=== PATIENT | female | born 1990 | race Caucasian/White ===

== ENCOUNTER 2021-06-02 12:25 | Emergency (ER) | payer OTHER ==
[2021-06-02 12:34] VITALS: BP 139/82; PULSE 78; RESP 18; TEMP 98
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
== END 2021-06-02 13:27 | disposition home or self-care (01) ==
LOC: EC 12:25 → SUPCPDRO 12:25 → EC 13:27
DX: S16.1XXA Strain of muscle, fascia and tendon at neck level, initial encounter (principal); E11.9 Type 2 diabetes mellitus without complications; Z79.4 Long term (current) use of insulin; V43.52XA Car driver injured in collision with other type car in traffic accident, initial encounter; Y92.410 Unspecified street and highway as the place of occurrence of the external cause
CPT/HCPCS: 72050; 99283

== ENCOUNTER 2022-08-14 11:31 | Emergency (ER) | payer OTHER ==
[2022-08-14 12:27] VITALS: TEMP 97.4
[2022-08-14] MEDS ORDERED: IPRATROPIUM-ALBUTEROL 3 ML NEB INHALATION STA (13:41)
--- NOTE | 2022-08-14 14:01 | XR ---
EXAMINATION TYPE: XR chest 2V DATE OF EXAM: 08/14/2022 COMPARISON: NONE HISTORY: Cough. TECHNIQUE: Frontal and lateral views of the chest are obtained. FINDINGS: There is no suspicious focal air space opacity, pleural effusion, or pneumothorax seen. T he cardiac silhouette size is within normal limits. The osseous structures are intact. IMPRESSION: No acute pulmonary process.
--- NOTE | 2022-08-14 14:24 | ED ---
URI HPI - General Chief Complaint: Upper Respiratory Infection Stated Complaint: possible pneumonia Time Seen by Provider: 08/14/22 13:14 Source: patient, RN notes reviewed Mode of arrival: ambulatory Limitations: no limitations - History of Present Illness Initial Comments: 32-year-old female presents emergency from chief complaint cough and cold-like s ymptoms. Patient states she's been sick for 2 weeks. Patient states she has productive cough, wheezing. Patient states she has history of diabetes no history of asthma or COPD she is a nonsmoker. Patient states she seen at urgent care and was started on steroids and antibiotics last week and finished up on . Patient states that she's not had much improvement. Denies any leg pain or leg swelling no shortness breath at rest. Patient states she's been taking ALLERGY meds with no relief also. - Related Data Home Medications Medication Instructions Recorded Confirmed Insulin Glargine [Lantus] 30 unit SQ HS 06/19/14 05/11/15 Insulin Glulisine [Apidra] 1 unit SQ DIRECTED 06/19/14 05/11/15 Desvenlafaxine Succinate [Pristiq 50 mg PO DAILY 04/25/15 05/11/15 ER] Previous Rx's Medication Instructions Recorded Albuterol Sulfate [Proair Hfa] 1 - 2 puff INHALATION Q4HR PRN 08/14/22 #8.5 gm Amoxic-Pot Clav 875-125Mg 1 tab PO Q12HR #20 tab 08/14/22 [Augmentin 875-125] Allergies Allergy/AdvReac Type Severity Reaction Status Date / Time No Known Allergies Allergy Verified 06/02/21 12:35 Review of Systems ROS Statement: Those systems with pertinent positive or pertinent negative responses have been documented in the HPI. ROS Other: All systems not noted in ROS Statement are negative. Past Medical History Past Medical History: Diabetes Mellitus Additional Past Medical History / Comment(s): miscarriage x 2 History of Any Multi-Drug Resistant Organisms: None Reported Past Surgical History: No Surgical Hx Reported Past Psychological History: Depression Smoking Status: Never smoker Past Alcohol Use History: Occasional Past Drug Use History: None Reported General Exam Limitations: no limitations General appearance: alert, in no apparent distress Head exam: Present: atraumatic, normocephalic, normal inspection Eye exam: Present: normal appearance, PERRL, EOMI. Absent: scleral icterus, conjunctival injection, periorbital swelling ENT exam: Present: normal exam, normal oropharynx, mucous membranes moist Neck exam: Present: normal inspection, full ROM. Absent: tenderness, meningismus, lymphadenopathy Respiratory exam: Present: wheezes, rhonchi. Absent: normal lung sounds bilaterally, respiratory distress, rales, stridor Cardiovascular Exam: Present: normal rhythm, tachycardia, normal heart sounds. Absent: systolic murmur, diastolic murmur, rubs, gallop, clicks GI/Abdominal exam: Present: soft, normal bowel sounds. Absent: distended, tenderness, guarding, rebound, rigid Course Vital Signs 08/14/22 08/14/22 12:23 14:34 Temperature 97.4 F L Pulse Rate 114 H 114 H Respiratory 20 Rate Blood Pressure 130/74 O2 Sat by Pulse 98 Oximetry Medical Decision Making - Medical Decision Making 32-year-old female presents emergency Department chief complaint of cough and cold-like symptoms's. Patient's x-ray does not show any acute abnormality patient has been sick for 2 weeks. Patient does have diffuse wheezing was given DuoNeb treatment did have some improvement. Patient discharged on pro-air, Augmentin return parameters discussed. Disposition Clinical Impression: Acute upper respiratory infection, Bronchitis Disposition: HOME SELF-CARE Condition: Stable Instructions (If sedation given, give patient instructions): Upper Respiratory Infection (ED) Additional Instructions: Please return to the Emergency Department if symptoms worsen or any other concerns. Prescriptions: Amoxic-Pot Clav 875-125Mg [Augmentin 875-125] 1 tab PO Q12HR #20 tab Albuterol Sulfate [Proair Hfa] 1 - 2 puff INHALATION Q4HR PRN #8.5 gm PRN Reason: difficulty in breathing Is patient prescribed a controlled substance at d/c from ED?: No Referrals: Brenda Hodge MD [Primary Care Provider] - 1-2 days Time of Disposition: 14:48
[2022-08-14 15:05] VITALS: BP 125/81; PULSE 111; RESP 17
== END 2022-08-14 15:05 | disposition home or self-care (01) ==
LOC: EC 11:31
DX: J06.9 Acute upper respiratory infection, unspecified (principal); J40 Bronchitis, not specified as acute or chronic; E11.9 Type 2 diabetes mellitus without complications; Z79.4 Long term (current) use of insulin
CPT/HCPCS: 71046; 99284

== ENCOUNTER → 2022-08-24 | Outpatient (CLI) | payer OTHER ==
--- NOTE | 2022-08-24 09:29 | MM ---
Reason for Exam: Clinical finding. Last mammogram was performed 3 year(s) and 10 month(s) ago. Indicated Problems: Lump or thickening of the right side for 8 Year(s). Patient History: Menarche at age 12. First Full-Term at age 21. Premenopausal. Patient has history of breast feeding. Prior Study Comparison: 10/23/2018 Bilateral MG diagnostic mammo w CAD CINDY - 2, [facility]. 10/23/2018 Bilateral MG 3D diag mammo w/cad CINDY - 2, [facility]. Tissue Density: The breast tissue is heterogeneously dense. This may lower the sensitivity of mammography. Findings: Analyzed By CAD. Palpable marker upper outer quadrant right breast. There is underlying dense tissue and nodularity measuring up to 3.1 cm. In addition, there appears to be an area of spiculation and distortion approximately 2:00 left breast middle to posterior depth. Bilateral breast ultrasound recommended. Overall Assessment: Incomplete: need additional imaging evaluation, BI-RAD 0 Management: Diagnostic Breast Ultrasound of both breasts. Particular attention to the upper outer quadrant palpable site on the right in the area of distortion/spiculation upper outer quadrant left breast. Electronically signed and approved by: Dinesh Gonzalez M.D. Radiologist
--- NOTE | 2022-08-24 12:31 | USB ---
Reason for Exam: Clinical finding. Patient History: Menarche at age 12. First Full-Term at age 21. Premenopausal. Patient has history of breast feeding. Prior Study Comparison: 10/23/2018 Bilateral MG diagnostic mammo w CAD CINDY - 2, [facility]. 10/23/2018 Bilateral MG 3D diag mammo w/cad CINDY - 2, [facility]. Findings: The whole breast of both breasts, the area of palpable concern of the right breast, the axilla of both breasts and the retroareolar of both breasts were scanned. Bilateral breast ultrasound is performed including scanning of the subareolar region and axilla. LEFT: -At the 2:00 position, 7 cm from the nipple, there is a 1.3 x 1.0 x 0.9 cm irregular hypoechoic lesion, likely mammographic correlate, suspicious for which tissue sampling is recommended. -At the 10:00 position, 9 cm from the nipple, there is a 9 x 9 x 7 mm irregular hypoechoic lesion, not clearly appreciated by mammogram, suspicious, for which tissue sampling is recommended. -At the 2:00 position, there is a benign 1.4 cm cyst. -At the 3:00 position, 10 cm from nipple, there is a 7 mm oval circumscribed hypoechoic lesion, likely a cyst with internal artifact due to deep positioning versus internal debris. -At the axilla, there is a benign-appearing 2.0 x 0.9 cm axillary node with uniform, thin 2 mm cortex. RIGHT: -At the 9:00 position, 9 cm from the nipple, there is a 2.8 x 2.4 x 1.9 cm circumscribed oval hypoechoic mass with posterior true transmission. This is a solid mass for which tissue sampling is recommended. A fibroadenoma is suspected. -At the 11:00 position, 18 cm from the nipple, there is a large area of dense tissue but with a 7 x 6 x 4 mm oval lesion within, possible cyst with debris versus a complex cyst. This corresponds to the patient's palpable site and tissue sampling is recommended. -No other solid or cystic lesion or axillary lymphadenopathy. Overall Assessment: Highly suggestive of malignancy, BI-RAD 5 Management: Ultrasound Core Biopsy of both breasts. 1. Two site biopsy on the left for very suspicious areas (2:00 and 10:00). 2. Two site biopsy on the right for low suspicion areas, likely 9:00 fibroadenoma and 11:00 possible cyst cluster at the palpable site. Results were given to the patient verbally at the time of exam. Electronically signed and approved by: Dinesh Gonzalez M.D. Radiologist
== END | disposition home or self-care (01) ==
LOC: RADMAMWWP 08:15
PROVIDERS: ATTEND Surgery
DX: N63.10 Unspecified lump in the right breast, unspecified quadrant (principal); N63.20 Unspecified lump in the left breast, unspecified quadrant
CPT/HCPCS: 77066

== ENCOUNTER 2022-09-05 10:33 | Emergency (ER) | payer OTHER ==
[2022-09-05 10:45] VITALS: TEMP 98.5
--- NOTE | 2022-09-05 11:16 | ED ---
URI HPI - General Chief Complaint: Upper Respiratory Infection Stated Complaint: revisit - URI, cough Time Seen by Provider: 09/05/22 10:52 Source: patient, RN notes reviewed Mode of arrival: ambulatory Limitations: no limitations - History of Present Illness Initial Comments: 32-year-old female presents emergency Department chief complaint of cough and cold like symptoms. Patient states she's been sick for several weeks states the cough improved some with the antibiotic states is still persisting. Patient states it's productive cough, harsh cough. She does not have a history of asthma or COPD. Patient is known diabetic. Patient denies any reported fever as nausea and diarrhea constipation. - Related Data Home Medications Medication Instructions Recorded Confirmed Atomoxetine HCl [Strattera] 60 mg PO DAILY 08/25/22 09/05/22 Insulin Aspart (For Pump) [NovoLOG 0.01 unit SQ-PUMP CONTINUOUS 08/25/22 (For Pump)] Sertraline [Zoloft] 100 mg PO DAILY 08/25/22 09/05/22 Previous Rx's Medication Instructions Recorded Clarithromycin [Biaxin] 500 mg PO Q12HR #20 tablet 09/05/22 Allergies Allergy/AdvReac Type Severity Reaction Status Date / Time No Known Allergies Allergy Verified 09/05/22 11:29 Review of Systems ROS Statement: Those systems with pertinent positive or pertinent negative responses have been documented in the HPI. ROS Other: All systems not noted in ROS Statement are negative. Past Medical History Past Medical History: Diabetes Mellitus Additional Past Medical History / Comment(s): miscarriage x 2. Type 1DM History of Any Multi-Drug Resistant Organisms: None Reported Past Surgical History: No Surgical Hx Reported Past Anesthesia/Blood Transfusion Reactions: No Reported Reaction Past Psychological History: ADD/ADHD, Depression Smoking Status: Former smoker Past Alcohol Use History: Occasional Past Drug Use History: Marijuana General Exam Limitations: no limitations General appearance: alert, in no apparent distress Head exam: Present: atraumatic, normocephalic, normal inspection Eye exam: Present: normal appearance, PERRL, EOMI. Absent: scleral icterus, conjunctival injection, periorbital swelling ENT exam: Present: normal exam, normal oropharynx, mucous membranes moist Neck exam: Present: normal inspection, full ROM. Absent: tenderness, meningismus, lymphadenopathy Respiratory exam: Present: normal lung sounds bilaterally. Absent: respiratory distress, wheezes, rales, rhonchi, stridor Cardiovascular Exam: Present: regular rate, normal rhythm, normal heart sounds. Absent: systolic murmur, diastolic murmur, rubs, gallop, clicks GI/Abdominal exam: Present: soft, normal bowel sounds. Absent: distended, tenderness, guarding, rebound, rigid Course Vital Signs 09/05/22 10:42 Temperature 98.5 F Pulse Rate 88 Respiratory 20 Rate Blood Pressure 129/74 O2 Sat by Pulse 98 Oximetry Medical Decision Making - Medical Decision Making X-rays unchanged as interpreted by me and radiology, negative RSV, influenza and COVID-19. Patient follow-up with PCP return parameters discussed. - Lab Data Lab Results 09/05/22 Range/Units 11:09 Influenza Type A (PCR) Not Detected (Not Detectd) Influenza Type B (PCR) Not Detected (Not Detectd) RSV (PCR) Not Detected (Not Detectd) SARS-CoV-2 (PCR) Not Detected (Not Detectd) Disposition Clinical Impression: Tracheobronchitis Disposition: HOME SELF-CARE Condition: Stable Instructions (If sedation given, give patient instructions): Upper Respiratory Infection (ED) Additional Instructions: Please return to the Emergency Department if symptoms worsen or any other concerns. Prescriptions: Clarithromycin [Biaxin] 500 mg PO Q12HR #20 tablet Is patient prescribed a controlled substance at d/c from ED?: No Referrals: None,Stated [Primary Care Provider] - 1-2 days Time of Disposition: :
--- NOTE | 2022-09-05 11:25 | XR ---
EXAMINATION TYPE: XR chest 2V DATE OF EXAM: 09/05/2022 11:20 AM COMPARISON: Chest radiographs from 08/14/2022. TECHNIQUE: XR chest 2V Frontal and lateral views of the chest. CLINICAL INDICATION:Female, 32 years old with history of cough; FINDINGS: Lungs/Pleura: There is no evidence of pleural effusion, focal consolidation, or pneumothorax. Pulmonary vascularity: Unremarkable. Heart/mediastinum: Cardiomediastinal silhouette is unremarkable. Musculoskeletal: No acute osseous pathology. IMPRESSION: No acute cardiopulmonary disease/process. No significant change from prior examination.
[2022-09-05 12:57] VITALS: BP 126/78; PULSE 80; RESP 18
== END 2022-09-05 12:57 | disposition home or self-care (01) ==
LOC: EC 10:33
DX: J40 Bronchitis, not specified as acute or chronic (principal); E11.9 Type 2 diabetes mellitus without complications; F90.9 Attention-deficit hyperactivity disorder, unspecified type; F32.A Depression, unspecified; F12.90 Cannabis use, unspecified, uncomplicated; Z87.891 Personal history of nicotine dependence; Z79.4 Long term (current) use of insulin; Z20.822 Contact with and (suspected) exposure to COVID-19
CPT/HCPCS: 71046; 87636; 99283

== ENCOUNTER → 2022-09-06 | Day surgery (SDC) | payer OTHER ==
--- NOTE | 2022-09-18 12:04 | MM ---
Reason for Exam: Post Procedure Mammogram. Last screening mammogram was performed less than 1 month ago. Patient History: Menarche at age 12. First Full-Term at age 21. Premenopausal. Patient has history of breast feeding. Prior Study Comparison: 10/23/2018 Bilateral MG diagnostic mammo w CAD CINDY - 2, [facility]. 10/23/2018 Bilateral MG 3D diag mammo w/cad CINDY - 2, [facility]. 08/24/2022 Bilateral MG diagnostic mammo w CAD CINDY, [facility]. Tissue Density: Left: The breast tissue is heterogeneously dense. This may lower the sensitivity of mammography. Pathology Description: The procedure of ultrasound guided core biopsy was explained to the patient. Benefits, alternatives, and risks were discussed. An informed consent was then obtained. A timeout was performed. Discussion was around for potential biopsy sites. During preliminary evaluation the second site within the left breast appear to be 3 adjacent simple cysts. Biopsy of this was not going to be performed. The remaining 3 areas were discussed. The patient was placed in supine positioning for imaging and for the procedure. The overlying skin was prepped and draped in usual sterile fashion. Lidocaine was used as anesthetic into the skin and subcutaneous tissue up to area of concern in the left breast. A small skin davi was made with surgical scalpel. Under ultrasound guidance, a 12-gauge vacuum assisted biopsy gun device was used to obtain 4 core samples. A biopsy clip was left in lesion. Hydromark butterfly core marker was placed. Patient had an episode of vasovagal reaction during the procedure. Patient denied pain at This treated with cold washcloth, which spontaneously resolved. The procedure was then continued. Patient was prepped in the standard on the right side. Skin davi was placed and the needle was advanced into the breast. A second episode of vasovagal reaction occurred. Patient denied pain. The needle was withdrawn and the Patient was provided [place] diffuse and cold washcloth. Symptoms resolved. Given the previous difficulty the right breast procedure was terminated at this time. The patient will be rescheduled for completion of the 2 biopsies on the right. The patient was kept in the radiology department for short stay after the procedure and then discharged home in stable condition. Postprocedure mammogram: The patient was transferred to mammography for physician ordered post procedure mammogram for clip placement verification. Impression: Successful ultrasound guided core biopsy of area of concern in the left breast, full pathology results to follow. Right breast biopsy, 2 sites, was not performed due to patient condition during the procedure. This will be rescheduled. Recommendations: 1. Recommendations are pending pathology results. 2. Patient will be rescheduled for completion of the 2 right-sided biopsy locations. Pathology Results: Result: Benign, Lipoma of the breast. LEFT BREAST, TWO O'CLOCK, ULTRASOUND GUIDED NEEDLE CORE BIOPSY: Mature adipose tissue consistent with lipoma. Breast elements are not identified . Overall Assessment: Benign Assessment: MG diagnostic mammo LT wo CAD. - Left: Benign, BI-RAD 2. Management: Diagnostic Breast Ultrasound of the left breast in 6 months. Electronically signed and approved by: Ricco Blackmon D.O. Radiologis
== END ==
LOC: RADUSWWP 10:13
PROVIDERS: ATTEND Surgery
DX: R92.8 Other abnormal and inconclusive findings on diagnostic imaging of breast (principal)
CPT/HCPCS: 88305; 77065; 19083; A4648

== ENCOUNTER → 2022-09-26 | Day surgery (SDC) | payer OTHER ==
--- NOTE | 2022-10-02 09:27 | MM ---
Reason for Exam: Post Procedure Mammogram. Last screening mammogram was performed 1 month(s) ago. Patient History: Menarche at age 12. First Full-Term at age 21. Premenopausal. Patient has history of breast feeding. 09/06/2022, US biopsy breast VAD LT on the Left side. Prior Study Comparison: 10/23/2018 Bilateral MG 3D diag mammo w/cad CINDY - 2, [facility]. 08/24/2022 Bilateral MG diagnostic mammo w CAD CINDY, [facility]. 09/06/2022 Left MG diagnostic mammo LT wo CAD., [facility]. Tissue Density: Right: The breast tissue is heterogeneously dense. This may lower the sensitivity of mammography. Pathology Description: Location: 11 o'clock. Marker Left Behind. Cores: 5 Gauge: 13 First the left breast was evaluated. Extensive shadowing breast tissue was present throughout. The biopsy clip was identified at the 2:00 position. Shadowing tissue just adjacent appeared exactly similar to other tissue elsewhere within the breasts. We are to deferring repeat biopsy of the left breast at this time and recommending that the patient proceeds to tomographic guided 3-D breast biopsy. Attention was turned to the right breast. The dominant 2.7 cm circumscribed solid mass at 9:00, possible fibroadenoma is identified. The round hypoechoic 6 mm area 11:00 is also identified. Both are targeted for biopsy in turn. The procedure of ultrasound guided core biopsy was explained to the patient. Benefits, alternatives, and risks were discussed. An informed consent was then obtained. The patient was placed in supine positioning for imaging and for the procedure. The overlying skin was prepped and draped in usual sterile fashion. Lidocaine was used as anesthetic into the skin and subcutaneous tissue up to area of concern in the right breast. Site A, 9:00, dominant mass, suspected fibroadenoma: Under ultrasound guidance, a 13-gauge vacuum-assisted mammotome biopsy gun was used to obtain 5 core samples. Following this, a wing clip was left in lesion. Site B, 11:00, small hypoechoic area, overall low suspicion: Under ultrasound guidance, a 13-gauge vacuum-assisted mammotome biopsy gun was used to obtain 6 core samples. Following this, a Hydromark coil clip was left in lesion. The patient tolerated the procedure well without any immediate complication. The patient was kept in the radiology department for short stay after the procedure and then discharged home in stable condition. Postprocedure mammogram: The patient was transferred to mammography for physician ordered post procedure mammogram for clip placement verification. Post procedure mammogram shows wing clip at the site of mammographic mass laterally. Coil clip is present laterally at a more posterior depth. Impression: 1. Successful, uncomplicated ultrasound guided two site biopsy of the right breast (suspected fibroadenoma at 9:00 and suspected benign lesion at 11:00), full pathology results to follow. 2. Canceled repeat ultrasound-guided left breast biopsy (after discordant results). The breast tissue was shadowing throughout and no discrete biopsy target is apparent. We recommend that the patient proceeds to 3-D/tomographic guided left breast biopsy for further assessment of the area of distortion. Pathology Results: Result: Benign, Fibroadenoma. A. RIGHT BREAST, NINE O'CLOCK, CORE BIOPSY: Compatible with benign fibroadenoma. B. RIGHT BREAST, ELEVEN O'CLOCK, CORE BIOPSY: Benign fibroadenoma with myxoid change. Pathology Description: Location: 9 o'clock. Marker Left Behind. Cores: 6 Gauge: 13 Overall Assessment: Benign Assessment: MG diagnostic mammo RT wo CAD - Right: Benign, BI-RAD 2. Management: Diagnostic Breast Ultrasound of the right breast in 6 months. Electronically signed and approved by: Dinesh Gonzalez M.D. Radiologist
== END ==
LOC: RADUSWWP 12:45
PROVIDERS: ATTEND Surgery
DX: D24.1 Benign neoplasm of right breast (principal)
CPT/HCPCS: 88305; 77065; 19083; 19084; A4648

== ENCOUNTER → 2022-09-29 | Outpatient (CLI) | payer OTHER ==
[2022-09-29 14:14] VITALS: BP 119/80; PULSE 105; RESP 16; TEMP 98.6
--- NOTE | 2022-09-29 15:00 | P.GSHP ---
History of Present Illness H&P Date: 09/29/22 Chief Complaint: abnormal bilateral mammogram and ultrasound Alyssa is a 32 year old white female seen in consultation for Dr. Hodge regarding an abnormal bilateral ultrasound. She had a bilateral mammogram on 08-24-22 followed by bilateral ultrasound. She had two area biopsied in the right breast which were fibroadenoma, and one in the left breast which was a lipoma but ? discordant. The films were reviewed with Dr. Hendrix. He recommended bilateral MRI and 3-D biopsy of an area of concern in the left breast. This started secondary to the fact the patient wanted to have a breast reduction. She did not feel anything new in her breast. The reduction was for back pain, shoulder notching, and macromastia. She wears 38H bra. Caffiene: 1-2/cups/day nicotine:none chocolate: occasional BCP: 10 years ago; used for about 4 years Family History: none Hormonal History; menarche: 12 m3, breast fed: yes. age at : 21 periods regular LMP: one week ago Surgical HIstory: none Medical History: type 1 diabetic depression ADHD Social History; nicotine: none alcohol: occasional drugs: marijuana daily - Constitutional Constitutional: Denies chills, Denies fever - EENT Eyes: denies blurred vision, denies pain Ears: deny: decreased hearing, tinnitus Ears, nose, mouth and throat: Reports headache, Denies sore throat - Breasts Breasts: bilateral: as per HPI - Cardiovascular Cardiovascular: Denies chest pain, Denies shortness of breath - Respiratory Respiratory: Denies cough, Denies 7 - Gastrointestinal Gastrointestinal: Denies abdominal pain, Denies diarrhea, Denies nausea, Denies vomiting - Genitourinary (Female) Genitourinary: Denies dysuria, Denies hematuria - Menstruation Menstruation: Reports period normal - Musculoskeletal Musculoskeletal: Denies myalgias - Integumentary Integumentary: Denies pruritus, Denies rash - Neurological Neurological: Denies numbness, Denies weakness - Psychiatric Psychiatric: Reports depression - Endocrine Endocrine: Reports as per HPI - Hematologic/Lymphatic Comment: none - Allergic/Immunologic Allergic/Immunologic: Reports seasonal allergies Past Medical History Past Medical History: Diabetes Mellitus Additional Past Medical History / Comment(s): miscarriage x 2. Type 1DM History of Any Multi-Drug Resistant Organisms: None Reported Past Surgical History: No Surgical Hx Reported Past Anesthesia/Blood Transfusion Reactions: No Reported Reaction Past Psychological History: ADD/ADHD, Depression Smoking Status: Former smoker Past Alcohol Use History: Occasional Additional Past Alcohol Use History / Comment(s): quit smoking 2018 Past Drug Use History: Marijuana Medications and Allergies Home Medications Medication Instructions Recorded Confirmed Type Atomoxetine HCl [Strattera] 60 mg PO DAILY 08/25/22 09/29/22 History Insulin Aspart (For Pump) [NovoLOG 0.01 unit SQ-PUMP CONTINUOUS 08/25/22 09/29/22 History (For Pump)] Sertraline [Zoloft] 100 mg PO DAILY 08/25/22 09/29/22 History Clarithromycin [Biaxin] 500 mg PO Q12HR #20 tablet 09/05/22 09/29/22 Rx Allergies Allergy/AdvReac Type Severity Reaction Status Date / Time No Known Allergies Allergy Verified 09/29/22 14:10 Surgical - Exam Vital Signs Temp Pulse Resp BP Pulse Ox 98.6 F 105 H 16 119/80 100 09/29/22 14:11 09/29/22 14:11 09/29/22 14:11 09/29/22 14:11 09/29/22 14:11 - General no distress - Eyes normal ocular movement - ENT no hearing loss - Neck trachea midline - Respiratory normal respiratory effort - Cardiovascular Rhythm: regular Heart Sounds: normal: S1, S2 - Abdomen Abdomen: soft, non tender, no guarding, no rigid, no rebound - Integumentary normal turgor - Neurologic no disoriented, no combative - Musculoskeletal normal gait, normal posture - Psychiatric oriented to time, oriented to person, oriented to place, speech is normal, memory intact Breast Exam: BRA: 38H Inspection: bilateral grade 3 ptosis; right breast larger than left breast; macromastia palpation: right breast: fibrocystic changes, no dominate masses or nodules of concern; biopsy site clean and dry right axilla: no adenopathy of concern left breast: fibrocystic changes, no dominate masses or nodules of concern; biopsy site clean and dry left axilla: no adenopathy of concern Results mammogram and ultrasound reviewed in detail with Dr. Gonzalez Assessment and Plan Assessment: Impression: diabetes depression ADHD right breast fibroadenoma 2 left breast highly suspecious mammogram symptomatic macromastia Plan: bilatearl MRI left breast 3D stero biopsy follow up after above CC: DR. Hodge
== END ==
LOC: WWCWWP 14:01
PROVIDERS: ATTEND Surgery
DX: N60.21 Fibroadenosis of right breast (principal); E11.9 Type 2 diabetes mellitus without complications; F32.A Depression, unspecified; F90.9 Attention-deficit hyperactivity disorder, unspecified type; N62 Hypertrophy of breast; Z79.4 Long term (current) use of insulin
CPT/HCPCS: 77065

== ENCOUNTER 2022-12-16 20:28 | Emergency (ER) | payer OTHER ==
[2022-12-16 20:32] VITALS: TEMP 99.1
[2022-12-16] MEDS ORDERED: SODIUM CHLORIDE 0.9% 500 ML 500 ML IV STA (20:42)
--- NOTE | 2022-12-16 20:47 | ED ---
General Adult HPI - General Chief complaint: Upper Respiratory Infection Stated complaint: sob Time Seen by Provider: 12/16/22 20:35 Source: patient, RN notes reviewed, old records reviewed Mode of arrival: ambulatory Limitations: no limitations - History of Present Illness Initial comments: This is a nontoxic-appearing 32-year-old female presents to the emergency room with complaints of shortness of breath and cough today. She states she has had increased production and mucus. Denies any fevers. No nausea vomiting diarrhea or abdominal pain. States that she has been having a thick mucous cough since last June, on and off. The shortness of breath today concerned her. Does have history of diabetes, ADHD and depression. -: days(s) (1) Severity scale (1-10): 0 Associated Symptoms: cough, shortness of breath - Related Data Home Medications Medication Instructions Recorded Confirmed Atomoxetine HCl [Strattera] 60 mg PO DAILY 08/25/22 09/29/22 Insulin Aspart (For Pump) [NovoLOG 0.01 unit SQ-PUMP CONTINUOUS 08/25/22 09/29/22 (For Pump)] Sertraline [Zoloft] 100 mg PO DAILY 08/25/22 09/29/22 Previous Rx's Medication Instructions Recorded Clarithromycin [Biaxin] 500 mg PO Q12HR #20 tablet 09/05/22 Allergies Allergy/AdvReac Type Severity Reaction Status Date / Time No Known Allergies Allergy Verified 09/29/22 14:10 Review of Systems ROS Statement: Those systems with pertinent positive or pertinent negative responses have been documented in the HPI. ROS Other: All systems not noted in ROS Statement are negative. Past Medical History Past Medical History: Diabetes Mellitus Additional Past Medical History / Comment(s): miscarriage x 2. Type 1DM History of Any Multi-Drug Resistant Organisms: None Reported Past Surgical History: No Surgical Hx Reported Past Anesthesia/Blood Transfusion Reactions: No Reported Reaction Past Psychological History: ADD/ADHD, Depression Smoking Status: Former smoker Past Alcohol Use History: Occasional Past Drug Use History: Marijuana General Exam Limitations: no limitations General appearance: alert, in no apparent distress Head exam: Present: atraumatic Eye exam: Present: normal appearance. Absent: periorbital swelling, periorbital tenderness ENT exam: Present: mucous membranes moist Neck exam: Present: full ROM. Absent: tenderness, meningismus Respiratory exam: Present: normal lung sounds bilaterally. Absent: respiratory distress, accessory muscle use Cardiovascular Exam: Present: tachycardia GI/Abdominal exam: Present: soft. Absent: distended, tenderness, guarding, rebound, rigid Extremities exam: Present: full ROM, normal capillary refill. Absent: tenderness, pedal edema, joint swelling, calf tenderness Back exam: Absent: tenderness Neurological exam: Present: alert, oriented X3, CN II-XII intact Psychiatric exam: Present: normal affect, normal mood Skin exam: Present: warm, dry, intact, normal color. Absent: cyanosis, diaphoretic, petechiae, pallor Course Vital Signs 12/16/22 12/16/22 12/16/22 20:29 21:31 22:19 Temperature 99.1 F Pulse Rate 103 H 100 Respiratory 20 18 18 Rate Blood Pressure 157/73 156/82 O2 Sat by Pulse 93 L 97 Oximetry EKG Findings - EKG Results: EKG: sinus rhythm (Sinus rhythm with a ventricular rate of 92, AL interval 0.140, QRS 0.87, QTC 0.378, normal axis) Medical Decision Making - Medical Decision Making Patient resting comfortably on the cart with oxygen saturation 98% on room air with a heart rate of 97. She has no shortness of breath. No chest pain. Labs show no evidence of leukocytosis. D-dimer is negative. Electrolytes are unremarkable. Troponin negative at 0.012 EKG shows sinus rhythm with ventricular rate 92, AL interval 0.140, QRS 0.87, QTC 378, normal axis, no old EKG to compare Chest x-ray interpreted by me shows no focal consolidation. Radiologist i nterpretation no acute cardiopulmonary disease process. Case discussed with Dr. Campos. She was offered viral testing and declined. States she will follow up with her Dr. Garcia next week and return with any new or concerning symptoms. Was pt. sent in by a medical professional or institution (, PA, [employer] PLANS STAFF OFFICER, urgent care, hospital, or residential...) When possible be specific @ -No Did you speak to anyone other than the patient for history (EMS, parent, family, police, friend...)? What history was obtained from this source @ -No Did you review nursing and triage notes (agree or disagree)? Why? @ -I reviewed and agree with nursing and triage notes Were old charts reviewed (outside hosp., previous admission, EMS record, old EKG, old radiological studies, urgent care reports/EKG's, residential records)? Report findings @ -No old charts were reviewed Differential Diagnosis (chest pain, altered mental status, abdominal pain women, abdominal pain men, vaginal bleeding, weakness, fever, dyspnea, syncope, headache, dizziness, GI bleed, back pain, seizure, CVA, palpatations, mental health, musculoskeletal)? @ -Pneumonia, viral illness, PE, HI, this is not an old sebaceous EKG interpreted by me (3pts min.). @ -As above X-rays interpreted by me (1pt min.). @ -Yes as above CT interpreted by me (1pt min.). @ -None done U/S interpreted by me (1pt. min.). @ -None done What testing was considered but not performed or refused? (CT, X-rays, U/S, labs)? Why? @ -Viral swabs were offered and patient refused What meds were considered but not given or refused? Why? @ -None Did you discuss the management of the patient with other professionals (jillian maravilla i.eNo Singer, PA, [employer] STAFF OFFICER, lab, RT, psych nurse, social welfare administrator, roll tube setter, teacher, adult parole officer, watch case polisher)? Give summary @ -No Was smoking cessation discussed for >3mins.? @ -No Was critical care preformed (if so, how long)? @ -No Were there social determinants of health that impacted care today? How? (Homelessness, low income, unemployed, alcoholism, drug addiction, transportation, low edu. Level, literacy, decrease access to med. care, half-way, rehab)? @ -No Was there de-escalation of care discussed even if they declined (Discuss DNR or withdrawal of care, Hospice)? DNR status @ -No What co-morbidities impacted this encounter? (DM, HTN, Smoking, COPD, CAD, Cancer, CVA, ARF, Chemo, Hep., AIDS, mental health diagnosis, sleep apnea, morbid obesity)? @ -Diabetes Was patient admitted / discharged? Hospital course, mention meds given and route, prescriptions, significant lab abnormalities, going to OR and other pertinent info. @ -discharged Undiagnosed new problem with uncertain prognosis? @ -No Drug Therapy requiring intensive monitoring for toxicity (Heparin, Nitro, Insulin, Cardizem)? @ -No Were any procedures done? @ -No Diagnosis/symptom? @ -URI Acute, or Chronic, or Acute on Chronic? @ -Acute Uncomplicated (without systemic symptoms) or Complicated (systemic symptoms)? @ -Uncomplicated Side effects of treatment? @ -No Exacerbation, Progression, or Severe Exacerbation? @ -No Poses a threat to life or bodily function? How? (Chest pain, USA, HI, pneumonia, PE, COPD, DKA, ARF, appy, cholecystitis, CVA, Diverticulitis, Homicidal, Suicidal, threat to staff... and all critical care pts) @ -No - Lab Data Result diagrams: 12/16/22 21:00 12/16/22 21:00 Lab Results 12/16/22 12/16/22 12/16/22 Range/Units 21:00 21:00 21:00 WBC 12.7 H (3.8-10.6) k/uL RBC 4.93 (3.80-5.40) m/uL Hgb 14.3 (11.4-16.0) gm/dL Hct 42.5 (34.0-46.0) % MCV 86.2 (80.0-100.0) fL MCH 28.9 (25.0-35.0) pg MCHC 33.6 (31.0-37.0) g/dL RDW 13.1 (11.5-15.5) % Plt Count 352 (150-450) k/uL MPV 8.7 Neutrophils % 67 % Lymphocytes % 20 % Monocytes % 6 % Eosinophils % 4 % Basophils % 1 % Neutrophils # 8.5 H (1.3-7.7) k/uL Lymphocytes # 2.6 (1.0-4.8) k/uL Monocytes # 0.7 (0-1.0) k/uL Eosinophils # 0.5 (0-0.7) k/uL Basophils # 0.1 (0-0.2) k/uL D-Dimer 0.56 (<0.60) mg/L FEU Sodium 137 (137-145) mmol/L Potassium 4.2 (3.5-5.1) mmol/L Chloride 102 (98-107) mmol/L Carbon Dioxide 23 (22-30) mmol/L Anion Gap 12 mmol/L BUN 7 (7-17) mg/dL Creatinine 0.37 L (0.52-1.04) mg/dL Est GFR (CKD-EPI)AfAm >90 (>60 ml/min/1.73 sqM) Est GFR (CKD-EPI)NonAf >90 (>60 ml/min/1.73 sqM) Glucose 173 H (74-99) mg/dL Calcium 9.4 (8.4-10.2) mg/dL Magnesium 1.8 (1.6-2.3) mg/dL Total Bilirubin 0.5 (0.2-1.3) mg/dL AST 24 (14-36) U/L ALT 26 (4-34) U/L Alkaline Phosphatase 73 (38-126) U/L Troponin I (0.000-0.034) ng/mL Total Protein 7.7 (6.3-8.2) g/dL Albumin 4.3 (3.5-5.0) g/dL 12/16/22 Range/Units 21:00 WBC (3.8-10.6) k/uL RBC (3.80-5.40) m/uL Hgb (11.4-16.0) gm/dL Hct (34.0-46.0) % MCV (80.0-100.0) fL MCH (25.0-35.0) pg MCHC (31.0-37.0) g/dL RDW (11.5-15.5) % Plt Count (150-450) k/uL MPV Neutrophils % % Lymphocytes % % Monocytes % % Eosinophils % % Basophils % % Neutrophils # (1.3-7.7) k/uL Lymphocytes # (1.0-4.8) k/uL Monocytes # (0-1.0) k/uL Eosinophils # (0-0.7) k/uL Basophils # (0-0.2) k/uL D-Dimer (<0.60) mg/L FEU Sodium (137-145) mmol/L Potassium (3.5-5.1) mmol/L Chloride (98-107) mmol/L Carbon Dioxide (22-30) mmol/L Anion Gap mmol/L BUN (7-17) mg/dL Creatinine (0.52-1.04) mg/dL Est GFR (CKD-EPI)AfAm (>60 ml/min/1.73 sqM) Est GFR (CKD-EPI)NonAf (>60 ml/min/1.73 sqM) Glucose (74-99) mg/dL Calcium (8.4-10.2) mg/dL Magnesium (1.6-2.3) mg/dL Total Bilirubin (0.2-1.3) mg/dL AST (14-36) U/L ALT (4-34) U/L Alkaline Phosphatase (38-126) U/L Troponin I <0.012 (0.000-0.034) ng/mL Total Protein (6.3-8.2) g/dL Albumin (3.5-5.0) g/dL Disposition Clinical Impression: Cough Disposition: HOME SELF-CARE Condition: Good Instructions (If sedation given, give patient instructions): Chronic Cough (ED), Upper Respiratory Infection (ED) Additional Instructions: Increase your fluid intake. Follow-up with the primary care doctor next week. Return to the emergency room with any new or concerning symptoms. Is patient prescribed a controlled substance at d/c from ED?: No Referrals: Brenda Hodge MD [Primary Care Provider] - 1-2 days Time of Disposition: 22:13
--- NOTE | 2022-12-16 21:26 | XR ---
EXAMINATION TYPE: XR chest 2V DATE OF EXAM: 12/16/2022 9:23 PM COMPARISON: Chest radiographs from 09/05/2022 TECHNIQUE: XR chest 2V Frontal and lateral views of the chest. CLINICAL INDICATION:Female, 32 years old with history of difficulty breathing; FINDINGS: Lungs/Pleura: There is no evidence of pleural effusion, focal consolidation, or pneumothorax. Pulmonary vascularity: Unremarkable. Heart/mediastinum: Cardiomediastinal silhouette is unremarkable. Musculoskeletal: No acute osseous pathology. IMPRESSION: No acute cardiopulmonary disease/process.
[2022-12-16 21:28] LABS: Basophils # (A) 0.1 k/uL (0-0.2); Basophils % (A) 1 %; Eosinophils # (A) 0.5 k/uL (0-0.7); Eosinophils % (A) 4 %; HCT 42.5 % (34.0-46.0); HGB 14.3 gm/dL (11.4-16.0); Lymphocytes # (A) 2.6 k/uL (1.0-4.8); Lymphocytes % (A) 20 %; MCH 28.9 pg (25.0-35.0); MCHC 33.6 g/dL (31.0-37.0); MCV 86.2 fL (80.0-100.0); Mean Platelet Volume 8.7; Monocytes # (A) 0.7 k/uL (0-1.0); Monocytes % (A) 6 %; Neutrophils # (A) 8.5 k/uL (1.3-7.7); Neutrophils % (A) 67 %; Platelet Count 352 k/uL (150-450); RBC 4.93 m/uL (3.80-5.40); RDW 13.1 % (11.5-15.5); WBC 12.7 k/uL (3.8-10.6)
[2022-12-16 21:42] LABS: ALT 26 U/L (4-34); AST 24 U/L (14-36); African American GFR (CKD) >90 (>60 ml/min/1.73 sqM); Albumin 4.3 g/dL (3.5-5.0); Alkaline Phosphatase 73 U/L (38-126); Anion Gap 12 mmol/L; Blood Urea Nitrogen 7 mg/dL (7-17); Calcium 9.4 mg/dL (8.4-10.2); Carbon Dioxide 23 mmol/L (22-30); Chloride 102 mmol/L (98-107); Glucose 173 mg/dL (74-99); Magnesium 1.8 mg/dL (1.6-2.3); Non-African American GFR(CKD) >90 (>60 ml/min/1.73 sqM); Potassium 4.2 mmol/L (3.5-5.1); Sodium 137 mmol/L (137-145); Total Bilirubin 0.5 mg/dL (0.2-1.3); Total Protein 7.7 g/dL (6.3-8.2)
[2022-12-16 22:18] VITALS: BP 156/82; PULSE 100; RESP 18
== END 2022-12-16 22:39 | disposition home or self-care (01) ==
LOC: EC 20:28
DX: R05.9 Cough, unspecified (principal); E11.9 Type 2 diabetes mellitus without complications; F90.9 Attention-deficit hyperactivity disorder, unspecified type; F32.A Depression, unspecified; F12.90 Cannabis use, unspecified, uncomplicated; Z87.891 Personal history of nicotine dependence; Z79.84 Long term (current) use of oral hypoglycemic drugs; Z79.4 Long term (current) use of insulin
CPT/HCPCS: 36415; 71046; 80053; 83735; 84484; 85025; 85379; 93005; 99285

== ENCOUNTER → 2022-12-20 | Outpatient (CLI) | payer OTHER ==
--- NOTE | 2022-12-21 09:59 | BMR ---
EXAMINATION TYPE: MR breast BILAT wo/w con DATE OF EXAM: 12/20/2022 COMPARISON: Diagnostic bilateral breast mammogram August 24, 2022 BI-RADS 0. Complete bilateral [facility] st ultrasound August 24, 2022 BI-RADS 5 HISTORY: Abnormal mamm/US biopsy. Ultrasound core biopsy September 06, 2022 Lipoma left breast 2:00 le razia. Ultrasound-guided core biopsy right breast September 26, 2022 9:00 lesion fibroadenoma and 11:00 lesion benign adenoma. TECHNIQUE: A series of fat and water weighted images in the long and short axis views of both breasts are obtained in conjunction with dynamic contrast MRI with subtraction technique. The patient was i njected with 10 mL intravenous Gadavist gadolinium contrast. Three-dimensional and additional postp rocessing imaging is created on independent workstation and reviewed during official interpretation o f this study. FINDINGS: Heterogeneously dense fibroglandular tissue bilaterally is redemonstrated with multiple sma ll to tiny thin-walled cysts of varying size and shape scattered throughout the bilateral breasts. Th ere are symmetric subcentimeter benign-appearing bilateral axillary lymph nodes. Dynamic postcontrast imaging shows moderate right greater than left background glandular enhancement with slight tiny nod ularity. Patient unable to complete the entire dynamic postcontrast imaging due to vomiting from cont rast reaction. Biopsy-proven fibroadenoma in the lateral inferior aspect of the right breast with art ifact from biopsy clip is noted image 488 series 701. IMPRESSION: Nondiagnostic study due to inability to complete entire protocol after contrast reaction. BI-RADS 0 incomplete study Recommendation: Appropriate follow-up. Annual mammogram at 40 years of age. Consider bilateral ultras ound surveillance in high risk patient with background dense tissue.
== END | disposition home or self-care (01) ==
LOC: RADMRIMAIN 07:58
PROVIDERS: ATTEND Surgery
DX: R92.8 Other abnormal and inconclusive findings on diagnostic imaging of breast (principal)
CPT/HCPCS: C8908; A9585; 77049

== ENCOUNTER → 2023-01-03 | Outpatient (CLI) | payer OTHER | LOC: WWCWWP 14:17 | PROVIDERS: ATTEND Surgery | DX: Z53.9 Procedure and treatment not carried out, unspecified reason (principal) ==

== ENCOUNTER → 2023-03-16 | Outpatient (CLI) | payer OTHER ==
[2023-03-16 10:54] VITALS: BP 139/85; PULSE 82; RESP 16; TEMP 98.7
--- NOTE | 2023-03-16 11:28 | P.PN ---
Subjective Progress Note Date: 03/16/23 Principal diagnosis: abnormal left bresat mammogram needs stero biopsy abnormal bilateral mammogram and ultrasound Alyssa is a 32 year old white female seen in consultation for Dr. Hodge regarding an abnormal bilateral ultrasound. She had a bilateral mammogram on 08-24-22 followed by bilateral ultrasound. She had two area biopsied in the right breast which were fibroadenoma, and one in the left breast which was a lipoma but ? discordant. The films were reviewed with Dr. Hendrix. He recommended bilateral MRI and 3-D biopsy of an area of concern in the left breast. This started secondary to the fact the patient wanted to have a breast reduction. She did not feel anything new in her breast. The reduction was for back pain, shoulder notching, and macromastia. She wears 38H bra. An attempt at MRI was done on 12-20-22 but the patient had a rxn to the contrast and the study was incomplete. She does not feel any changes in her breast at this time. 3 D stereotactic core biopsy done at [facility] on . This was benign breast tissue with fibrocystic changes, fat necrosis and was felt to be benign concordant. Caffiene: 1-2/cups/day nicotine:none chocolate: occasional BCP: 10 years ago; used for about 4 years Family History: none Hormonal History; menarche: 12 m3, breast fed: yes. age at : 21 periods regular LMP: one week ago Surgical HIstory: none Medical History: type 1 diabetic depression ADHD Social History; nicotine: none alcohol: occasional drugs: marijuana daily - Constitutional Constitutional: Denies chills, Denies fever - EENT Eyes: denies blurred vision, denies pain Ears: deny: decreased hearing, tinnitus Ears, nose, mouth and throat: Reports headache, Denies sore throat - Breasts Breasts: bilateral: as per HPI - Cardiovascular Cardiovascular: Denies chest pain, Denies shortness of breath - Respiratory Respiratory: Denies cough - Gastrointestinal Gastrointestinal: Denies abdominal pain, Denies diarrhea, Denies nausea, Denies vomiting - Genitourinary (Female) Genitourinary: Denies dysuria, Denies hematuria - Menstruation Menstruation: Reports period normal - Musculoskeletal Musculoskeletal: Denies myalgias - Integumentary Integumentary: Denies pruritus, Denies rash - Neurological Neurological: Denies numbness, Denies weakness - Psychiatric Psychiatric: Reports depression - Endocrine Endocrine: Reports as per HPI - Hematologic/Lymphatic Comment: none - Allergic/Immunologic Allergic/Immunologic: Reports seasonal allergies Past Medical History Past Medical History: Diabetes Mellitus Additional Past Medical History / Comment(s): miscarriage x 2. Type 1DM History of Any Multi-Drug Resistant Organisms: None Reported Past Surgical History: No Surgical Hx Reported Past Anesthesia/Blood Transfusion Reactions: No Reported Reaction Past Psychological History: ADD/ADHD, Depression Smoking Status: Former smoker Past Alcohol Use History: Occasional Additional Past Alcohol Use History / Comment(s): quit smoking 2018 Past Drug Use History: Marijuana Medications and Allergies Home Medications Medication Instructions Recorded Confirmed Type Atomoxetine HCl [Strattera] 60 mg PO DAILY 08/25/22 09/29/22 History Insulin Aspart (For Pump) [NovoLOG 0.01 unit SQ-PUMP CONTINUOUS 08/25/22 09/29/22 History (For Pump)] Sertraline [Zoloft] 100 mg PO DAILY 08/25/22 09/29/22 History Clarithromycin [Biaxin] 500 mg PO Q12HR #20 tablet 09/05/22 09/29/22 Rx Allergies Allergy/AdvReac Type Severity Reaction Status Date / Time No Known Allergies Allergy Verified 09/29/22 14:10 Objective - Vital Signs Vital signs: Vital Signs Temp 98.7 F 03/16/23 10:52 Pulse 82 03/16/23 10:52 Resp 16 03/16/23 10:52 BP 139/85 03/16/23 10:52 Pulse Ox 98 03/16/23 10:52 FiO2 Intake & Output 03/15/23 03/16/23 03/16/23 18:59 06:59 18:59 Weight 90.718 kg - Constitutional General appearance: Present: cooperative - EENT Eyes: Present: EOMI ENT: Present: hearing grossly normal - Neck Neck: Present: normal ROM - Respiratory Respiratory: bilateral: CTA - Cardiovascular Heart sounds: normal: S1, S2 - Integumentary Integumentary: Present: normal turgor - Musculoskeletal Musculoskeletal: Present: gait normal - Psychiatric Psychiatric: Present: A&O x's 3, appropriate affect, intact judgment & insight - Additional findings Additional findings: Breast Exam: BRA: 38H Inspection: bilateral grade 3 ptosis; right breast larger than left breast; macromastia palpation: right breast: fibrocystic changes, no dominate masses or nodules of concern; biopsy site clean and dry right axilla: no adenopathy of concern left breast: fibrocystic changes, no dominate masses or nodules of concern; biopsy site clean and dry left axilla: no adenopathy of concern Assessment and Plan Assessment: Impression: diabetes depression ADHD right breast fibroadenoma 2 left breast highly suspecious mammogram symptomatic macromastia 3-D stereo biopsy left breast benign concordant done on 220 [id number] Plan: Patient is cleared for bilateral reduction mammoplasty Repeat bilateral mammogram here in 6 months with examination at that time CC: DR. Hodge Additional CC's: Brenda Hodge
== END ==
LOC: WWCWWP 10:44
PROVIDERS: ATTEND Surgery
DX: D24.1 Benign neoplasm of right breast (principal); E10.9 Type 1 diabetes mellitus without complications; F32.A Depression, unspecified; F90.9 Attention-deficit hyperactivity disorder, unspecified type; N62 Hypertrophy of breast; Z79.4 Long term (current) use of insulin; Z87.891 Personal history of nicotine dependence

== ENCOUNTER 2023-08-16 14:02 | Emergency (ER) | payer OTHER ==
[2023-08-16 14:34] VITALS: RESP 18
--- NOTE | 2023-08-16 14:51 | ED ---
General Adult HPI - General Source: patient, RN notes reviewed Mode of arrival: ambulatory Limitations: no limitations <Ramses Hyman - Last Filed: 08/16/23 14:50> <Emmanuel Mcqueen - Last Filed: 08/16/23 15:52> - General Chief complaint: Allergic Reaction Stated complaint: chest,shoulder,face skin warm Time Seen by Provider: 08/16/23 14:50 - History of Present Illness Initial comments: 33-year-old female presents emergency Department chief complaint concerns about possible ALLERGIC reaction. Patient states she had increase of her Lamictal. Patient states she is on this for her mood stabilizer. Patient states she feels a burning sensation warm flushing feeling. Patient states she does not have any rashes. Patient denies any difficulty breathing noted of the swelling. Patient states she also has mild ear discomfort. (Ramses Hyman) 33-year-old female with recent increase in Lamictal. She started on this medication several weeks ago and increased her dose yesterday. She's had a burning sensation in her forehead and upper chest for the past several weeks but this worsened with the increase in dose yesterday. She had contacted her primary care provider who indicated that she should discontinue the Lamictal. And it there was concern for possible rash associated with this which could be quite serious. The patient denies a noticed rash denies any erythema, or lesions within her mouth. No chest pain or dyspnea. No lower extremity pain or swelling. No vomiting. Fever. (Emmanuel Mcqueen) - Related Data Home Medications Medication Instructions Recorded Confirmed Atomoxetine HCl [Strattera] 60 mg PO DAILY 08/25/22 03/16/23 Insulin Aspart (For Pump) [NovoLOG 0.01 unit SQ-PUMP CONTINUOUS 08/25/22 03/16/23 (For Pump)] Sertraline [Zoloft] 100 mg PO DAILY 08/25/22 03/16/23 busPIRone HCL [Buspar] 7.5 mg PO DAILY 03/16/23 03/16/23 Allergies Allergy/AdvReac Type Severity Reaction Status Date / Time Iodinated Contrast Media Allergy Nausea & Verified 08/16/23 14:15 Vomiting iodine Allergy Nausea & Verified 08/16/23 14:15 Vomiting Review of Systems ROS Other: All systems not noted in ROS Statement are negative. <Ramses Hyman - Last Filed: 08/16/23 14:50> ROS Other: All systems not noted in ROS Statement are negative. <CamilaEmmanuel elais Mauro - Last Filed: 08/16/23 15:52> ROS Statement: Those systems with pertinent positive or pertinent negative responses have been documented in the HPI. Past Medical History Past Medical History: Diabetes Mellitus Additional Past Medical History / Comment(s): miscarriage x 2. Type 1DM History of Any Multi-Drug Resistant Organisms: None Reported Past Surgical History: Breast Surgery Past Anesthesia/Blood Transfusion Reactions: No Reported Reaction Past Psychological History: ADD/ADHD, Depression Smoking Status: Former smoker Past Alcohol Use History: Occasional Past Drug Use History: Marijuana <Ramses Hyman - Last Filed: 08/16/23 14:50> General Exam Limitations: no limitations <Ramses Hyman - Last Filed: 08/16/23 14:50> General appearance: alert, in no apparent distress Head exam: Present: atraumatic, normocephalic Eye exam: Present: normal appearance, PERRL ENT exam: Present: normal exam, normal oropharynx, TM's normal bilaterally Respiratory exam: Present: normal lung sounds bilaterally. Absent: respiratory distress, wheezes, rales Cardiovascular Exam: Present: regular rate, normal rhythm GI/Abdominal exam: Present: soft. Absent: distended, tenderness, guarding Extremities exam: Present: normal inspection, normal capillary refill. Absent: calf tenderness Neurological exam: Present: alert, oriented X3, CN II-XII intact, normal gait. Absent: motor sensory deficit Psychiatric exam: Present: normal affect, normal mood Skin exam: Present: warm, dry, intact. Absent: rash, cyanosis, diaphoretic <MalenaaleishaEmmanuel - Last Filed: 08/16/23 15:52> - General Exam Comments Initial Comments: Visual Physical Exam Vital signs reviewed General: Well-appearing, nontoxic, no acute distress. Head: Normocephalic, atraumatic Eyes: PERRLA, EOMI ENT: Airway patent Chest: Nonlabored breathing Skin: No visual rash, normal skin tone Neuro: Alert and oriented 3 Musculoskeletal: No gross abnormalities (Ramses Hyman) Course Vital Signs 08/16/23 14:12 Temperature 98.5 F Pulse Rate 105 H Respiratory 18 Rate Blood Pressure 148/89 O2 Sat by Pulse 100 Oximetry Medical Decision Making <Ramses Hyman M - Last Filed: 08/16/23 14:50> <CharisseEmmanuel Mauro - Last Filed: 08/16/23 15:52> - Medical Decision Making I completed the quick note portion of this chart signed Ramses Hyman PA-C (Ramses Hyman) Was pt. sent in by a medical professional or institution (BRIAN Singer, LEGISLATIVE AIDE, urgent care, hospital, or skilled nursing...) When possible be specific @ -No Did you speak to anyone other than the patient for history (EMS, parent, family, police, friend...)? What history was obtained from this source @ -No Did you review nursing and triage notes (agree or disagree)? Why? @ -I reviewed and agree with nursing and triage notes Were old charts reviewed (outside hosp., previous admission, EMS record, old EKG, old radiological studies, urgent care reports/EKG's, skilled nursing records)? Report findings @ -No old charts were reviewed Differential Diagnosis (chest pain, altered mental status, abdominal pain women, abdominal pain men, vaginal bleeding, weakness, fever, dyspnea, syncope, headache, dizziness, GI bleed, back pain, seizure, CVA, palpatations, mental health, musculoskeletal)? @ Adverse drug reaction, ALLERGIC reaction to drug, Alex Ghotra's EKG interpreted by me (3pts min.). @ -As above X-rays interpreted by me (1pt min.). @ -None done CT interpreted by me (1pt min.). @ -None done U/S interpreted by me (1pt. min.). @ -None done What testing was considered but not performed or refused? (CT, X-rays, U/S, labs)? Why? @ -None What meds were considered but not given or refused? Why? @ -None Did you discuss the management of the patient with other professionals (professionals i.e. BRIAN Singer, LEGISLATIVE AIDE, lab, RT, psych nurse, rn social services, steam shovel engineer, teacher, court collections officer, catalytic case operator)? Give summary @ -No Was smoking cessation discussed for >3mins.? @ -No Was critical care preformed (if so, how long)? @ -No Were there social determinants of health that impacted care today? How? (Homelessness, low income, unemployed, alcoholism, drug addiction, transportation, low edu. Level, literacy, decrease access to med. care, alf, rehab)? @ -No Was there de-escalation of care discussed even if they declined (Discuss DNR or withdrawal of care, Hospice)? DNR status @ -No What co-morbidities impacted this encounter? (DM, HTN, Smoking, COPD, CAD, Cancer, CVA, ARF, Chemo, Hep., AIDS, mental health diagnosis, sleep apnea, morbid obesity)? @ -mood Disorder, diabetes Was patient admitted / discharged? Hospital course, mention meds given and route, prescriptions, significant lab abnormalities, going to OR and other pertinent info. @ 33-year-old female with possible adverse drug reaction, burning sensation to her skin. No visualized rash. This was temporally associated with increase in Lamictal. She has discontinued this medication. Patient is otherwise well- appearing with no alarming signs or symptoms. She will monitor her symptoms as the medication has been discontinued she's given strict return parameters and will follow closely with her primary care provider Undiagnosed new problem with uncertain prognosis? @ -No Drug Therapy requiring intensive monitoring for toxicity (Heparin, Nitro, Insulin, Cardizem)? @ -No Were any procedures done? @ -No Diagnosis/symptom? @ -Adverse drug reaction Acute, or Chronic, or Acute on Chronic? @ -Acute Uncomplicated (without systemic symptoms) or Complicated (systemic symptoms)? @ -default Side effects of treatment? @ -No Exacerbation, Progression, or Severe Exacerbation? @ -No Poses a threat to life or bodily function? How? (Chest pain, [place], [place], pneumonia, PE, COPD, DKA, ARF, appy, cholecystitis, CVA, Diverticulitis, Homicidal, Suicid al, threat to staff... and all critical care pts) @ -Low risk at this time (Emmanuel Mcqueen) Disposition <Ramses Hyman - Last Filed: 08/16/23 14:50> Is patient prescribed a controlled substance at d/c from ED?: No Time of Disposition: 15:52 <Emmanuel Mcqueen - Last Filed: 08/16/23 15:52> Clinical Impression: Adverse reaction to drug Disposition: HOME SELF-CARE Condition: Good Instructions (If sedation given, give patient instructions): General Allergic Reaction (ED) Additional Instructions: Please monitor symptoms closely if he should develop a rash or new or worsening symptoms including difficulty breathing, nausea vomiting. Please return to the emergency department. Referrals: Brenda Hodge MD [Primary Care Provider] - 1-2 days
[2023-08-16 16:49] VITALS: BP 128/84; PULSE 99; TEMP 98.4
== END 2023-08-16 16:13 | disposition home or self-care (01) ==
LOC: EC 14:02
DX: H92.09 Otalgia, unspecified ear (principal); T42.6X5A Adverse effect of other antiepileptic and sedative-hypnotic drugs, initial encounter; E11.9 Type 2 diabetes mellitus without complications; F12.90 Cannabis use, unspecified, uncomplicated; F32.A Depression, unspecified; Z79.4 Long term (current) use of insulin; Z87.891 Personal history of nicotine dependence; Z91.041 Radiographic dye allergy status; Z79.899 Other long term (current) drug therapy
CPT/HCPCS: 99283

== ENCOUNTER → 2023-09-06 | Outpatient (CLI) | payer OTHER ==
[2023-09-06 15:08] VITALS: BP 132/78; PULSE 104; RESP 18; TEMP 98.4
--- NOTE | 2023-09-06 15:33 | P.PN ---
Subjective Progress Note Date: 09/06/23 abnormal bilateral mammogram and ultrasound Alyssa is a 32 year old white female seen in consultation for Dr. Hodge regarding an abnormal bilateral ultrasound. She had a bilateral mammogram on 08-24-22 followed by bilateral ultrasound. She had two area biopsied in the right breast which were fibroadenoma, and one in the left breast which was a lipoma but ? discordant. The films were reviewed with Dr. Hendrix. He recommended bilateral MRI and 3-D biopsy of an area of concern in the left breast. This started secondary to the fact the patient wanted to have a breast reduction. She did not feel anything new in her breast. The reduction was for back pain, shoulder notching, and macromastia. She wears 38H bra. An attempt at MRI was done on 12-20-22 but the patient had a rxn to the contrast and the study was incomplete. She does not feel any changes in her breast at this time. 3 D stereotactic core biopsy done at [facility] on . This was benign breast tissue with fibrocystic changes, fat necrosis and was felt to be benign concordant. The patient had bilateral breast reduction on 04-20-23. Her pathology was benign. She had a manic episode after the reduction. Caffiene: 1-2/cups/day nicotine:none chocolate: occasional BCP: 10 years ago; used for about 4 years Family History: none Hormonal History; menarche: 12 m3, breast fed: yes. age at : 21 periods regular LMP: one week ago Surgical HIstory: none Medical History: type 1 diabetic depression ADHD Social History; nicotine: none alcohol: occasional drugs: marijuana daily - Constitutional Constitutional: Denies chills, Denies fever - EENT Eyes: denies blurred vision, denies pain Ears: deny: decreased hearing, tinnitus Ears, nose, mouth and throat: Reports headache, Denies sore throat - Breasts Breasts: bilateral: as per HPI - Cardiovascular Cardiovascular: Denies chest pain, Denies shortness of breath - Respiratory Respiratory: Denies cough - Gastrointestinal Gastrointestinal: Denies abdominal pain, Denies diarrhea, Denies nausea, Denies vomiting - Genitourinary (Female) Genitourinary: Denies dysuria, Denies hematuria - Menstruation Menstruation: Reports period normal - Musculoskeletal Musculoskeletal: Denies myalgias - Integumentary Integumentary: Denies pruritus, Denies rash - Neurological Neurological: Denies numbness, Denies weakness - Psychiatric Psychiatric: Reports depression - Endocrine Endocrine: Reports as per HPI - Hematologic/Lymphatic Comment: none - Allergic/Immunologic Allergic/Immunologic: Reports seasonal allergies Past Medical History Past Medical History: Diabetes Mellitus Additional Past Medical History / Comment(s): miscarriage x 2. Type 1DM History of Any Multi-Drug Resistant Organisms: None Reported Past Surgical History: No Surgical Hx Reported Past Anesthesia/Blood Transfusion Reactions: No Reported Reaction Past Psychological History: ADD/ADHD, Depression Smoking Status: Former smoker Past Alcohol Use History: Occasional Additional Past Alcohol Use History / Comment(s): quit smoking 2019 Past Drug Use History: Marijuana Medications and Allergies Home Medications Medication Instructions Recorded Confirmed Type Atomoxetine HCl [Strattera] 60 mg PO DAILY 08/25/22 09/29/22 History Insulin Aspart (For Pump) [NovoLOG 0.01 unit SQ-PUMP CONTINUOUS 08/25/22 09/29/22 History (For Pump)] Sertraline [Zoloft] 100 mg PO DAILY 08/25/22 09/29/22 History Clarithromycin [Biaxin] 500 mg PO Q12HR #20 tablet 09/05/22 09/29/22 Rx Allergies Allergy/AdvReac Type Severity Reaction Status Date / Time No Known Allergies Allergy Verified 09/29/22 14:10 Objective - Vital Signs Vital signs: Vital Signs Temp 98.4 F 09/06/23 15:00 Pulse 104 H 09/06/23 15:00 Resp 18 09/06/23 15:00 BP 132/78 09/06/23 15:00 Pulse Ox 100 09/06/23 15:00 FiO2 Intake & Output 09/05/23 09/06/23 09/06/23 18:59 06:59 18:59 Weight 83.915 kg - Constitutional General appearance: Present: cooperative - EENT Eyes: Present: EOMI ENT: Present: hearing grossly normal - Neck Neck: Present: normal ROM - Respiratory Respiratory: bilateral: CTA - Cardiovascular Rhythm: regular Heart sounds: normal: S1, S2 - Integumentary Integumentary: Present: normal turgor - Musculoskeletal Musculoskeletal: Present: gait normal - Psychiatric Psychiatric: Present: A&O x's 3, appropriate affect, intact judgment & insight - Additional findings Additional findings: Breast Exam: BRA: 38D Specimen: Well-healed scars from bilateral reduction mammoplasty, bilateral grade 1 ptosis Palpation: Right breast: Multi-positional exam no dominant masses or nodules of concern Right axilla: No adenopathy of concern Left breast: Multi-positional exam no dominant masses or nodules of concern Left axilla: No adenopathy of concern Assessment and Plan Assessment: Impression: diabetes depression ADHD right breast fibroadenoma 2 symptomatic macromastia/is post bilateral reduction mammoplasty Left breast suspicious mammogram in the past 3-D stereo biopsy left breast benign concordant done on Plan: Bilateral mammogram, left breast ultrasound with examination to follow Patient did have ultrasound-guided 2 site biopsy of the right breast which was benign and an attempt at left breast ultrasound which was unable to be done on . CC: DR. Hodge
== END ==
LOC: WWCWWP 14:29
PROVIDERS: ATTEND Surgery
DX: D24.1 Benign neoplasm of right breast (principal); N62 Hypertrophy of breast; F32.A Depression, unspecified; E10.9 Type 1 diabetes mellitus without complications; F98.8 Other specified behavioral and emotional disorders with onset usually occurring in childhood and adolescence; F12.90 Cannabis use, unspecified, uncomplicated; F90.9 Attention-deficit hyperactivity disorder, unspecified type; Z79.4 Long term (current) use of insulin; Z87.891 Personal history of nicotine dependence; Z88.8 Allergy status to other drugs, medicaments and biological substances; Z91.041 Radiographic dye allergy status

== ENCOUNTER → 2023-11-16 | Outpatient (CLI) | payer OTHER ==
--- NOTE | 2023-11-16 16:02 | MM ---
Reason for Exam: Additional evaluation requested from prior study. Last mammogram was performed 1 year(s) and 3 month(s) ago. Patient History: Menarche at age 12. First Full-Term at age 21. Premenopausal. Patient has history of breast feeding. 04/17/2023, Bilateral Reduction. 09/26/2022, Benign US biopsy breast VAD RT on the right side. 09/26/2022, US biopsy breast add'l VAD RT on the Right side. 09/06/2022, US biopsy breast VAD LT on the Left side. Last menstrual period: 11/09/2023 Prior Study Comparison: 10/23/2018 Bilateral MG diagnostic mammo w CAD [facility]INDY - 2, [facility]. 10/23/2018 Bilateral MG 3D diag mammo w/cad [facility]IND[facility] - 2, [facility]. 08/24/2022 Bilateral MG diagnostic mammo w CAD CINDY, [facility]. 09/06/2022 Left MG diagnostic mammo LT wo CAD., [facility]. 09/26/2022 Right MG diagnostic mammo RT wo CAD, [facility]. Tissue Density: The breast tissue is heterogeneously dense. This may lower the sensitivity of mammography. Findings: Analyzed By CAD. This is a baseline examination post reduction bilaterally. Biopsy clip remains within the left breast. Previous right breast biopsy clip is absent. Something calcifications are within the inferior superficial breast 5 6:00 position with the inferior mammary fold. No suspicious groups of microcalcifications, spiculated or lobular masses, architectural distortion or other secondary signs of malignancy are mammographically apparent. Overall Assessment: Benign, BI-RAD 2 Management: Screening Mammogram of both breasts in 1 year. A negative mammogram report should not preclude additional follow up of suspicious palpable abnormalities. Patient should continue monthly self breast exam. A clinical breast exam by your physician is recommended on an annual basis and results should be correlated with mammographic findings. Electronically signed and approved by: Ricco Blackmon D.O. Radiologis
== END | disposition home or self-care (01) ==
LOC: RADMAMWWP 12:53
PROVIDERS: ATTEND Surgery
DX: R92.333 Mammographic heterogeneous density, bilateral breasts (principal)
CPT/HCPCS: 77062; 77066

== ENCOUNTER → 2023-11-30 | Outpatient (CLI) | payer OTHER ==
--- NOTE | 2023-11-30 12:05 | P.PN ---
Subjective Progress Note Date: 11/30/23 09/06/23 abnormal bilateral mammogram and ultrasound Alyssa is a 32 year old white female seen in consultation for Dr. Hodge regarding an abnormal bilateral ultrasound. She had a bilateral mammogram on 08-24-22 followed by bilateral ultrasound. She had two area biopsied in the right breast which were fibroadenoma, and one in the left breast which was a lipoma but ? discordant. The films were reviewed with Dr. Hendrix. He recommended bilateral MRI and 3-D biopsy of an area of concern in the left breast. This started secondary to the fact the patient wanted to have a breast reduction. She did not feel anything new in her breast. The reduction was for back pain, shoulder notching, and macromastia. She wears 38H bra. An attempt at MRI was done on 12-20-22 but the patient had a rxn to the contrast and the study was incomplete. She does not feel any changes in her breast at this time. 3 D stereotactic core biopsy done at [facility] on . This was benign breast tissue with fibrocystic changes, fat necrosis and was felt to be benign concordant. The patient had bilateral breast reduction on 04-20-23. Her pathology was benign. She had a manic episode after the reduction. Bilateral mammogram on 11-16-23 BIRAD 2, not complaining of any new lumps masses or nodules in either breast. Caffiene: 1-2/cups/day nicotine:none chocolate: occasional BCP: 10 years ago; used for about 4 years Family History: none Hormonal History; menarche: 12 m3, breast fed: yes. age at : 21 periods regular LMP: one week ago Surgical HIstory: bilateral reduction mammoplasty Medical History: type 1 diabetic depression ADHD Social History; nicotine: none alcohol: occasional drugs: marijuana daily - Constitutional Constitutional: Denies chills, Denies fever - EENT Eyes: denies blurred vision, denies pain Ears: deny: decreased hearing, tinnitus Ears, nose, mouth and throat: Reports headache, Denies sore throat - Breasts Breasts: bilateral: as per HPI - Cardiovascular Cardiovascular: Denies chest pain, Denies shortness of breath - Respiratory Respiratory: Denies cough - Gastrointestinal Gastrointestinal: Denies abdominal pain, Denies diarrhea, Denies nausea, Denies vomiting - Genitourinary (Female) Genitourinary: Denies dysuria, Denies hematuria - Menstruation Menstruation: Reports period normal - Musculoskeletal Musculoskeletal: Denies myalgias - Integumentary Integumentary: Denies pruritus, Denies rash - Neurological Neurological: Denies numbness, Denies weakness - Psychiatric Psychiatric: Reports depression - Endocrine Endocrine: Reports as per HPI - Hematologic/Lymphatic Comment: none - Allergic/Immunologic Allergic/Immunologic: Reports seasonal allergies Past Medical History Past Medical History: Diabetes Mellitus Additional Past Medical History / Comment(s): miscarriage x 2. Type 1DM History of Any Multi-Drug Resistant Organisms: None Reported Past Surgical History: No Surgical Hx Reported Past Anesthesia/Blood Transfusion Reactions: No Reported Reaction Past Psychological History: ADD/ADHD, Depression Smoking Status: Former smoker Past Alcohol Use History: Occasional Additional Past Alcohol Use History / Comment(s): quit smoking 2018 Past Drug Use History: Marijuana Medications and Allergies Home Medications Medication Instructions Recorded Confirmed Type Atomoxetine HCl [Strattera] 60 mg PO DAILY 08/25/22 09/29/22 History Insulin Aspart (For Pump) [NovoLOG 0.01 unit SQ-PUMP CONTINUOUS 08/25/22 09/29/22 History (For Pump)] Sertraline [Zoloft] 100 mg PO DAILY 08/25/22 09/29/22 History Clarithromycin [Biaxin] 500 mg PO Q12HR #20 tablet 09/05/22 09/29/22 Rx Allergies Allergy/AdvReac Type Severity Reaction Status Date / Time No Known Allergies Allergy Verified 09/29/22 14:10 Objective - Vital Signs Vital signs: Intake & Output 11/29/23 11/30/23 11/30/23 18:59 06:59 18:59 Weight 86.183 kg - Constitutional General appearance: Present: cooperative - EENT Eyes: Present: EOMI ENT: Present: hearing grossly normal - Neck Neck: Present: normal ROM - Respiratory Respiratory: bilateral: CTA - Cardiovascular Rhythm: regular Heart sounds: normal: S1, S2 - Integumentary Integumentary: Present: normal turgor - Musculoskeletal Musculoskeletal: Present: gait normal - Psychiatric Psychiatric: Present: A&O x's 3, appropriate affect, intact judgment & insight - Additional findings Additional findings: Breast Exam: BRA: 38D Specimen: Well-healed scars from bilateral reduction mammoplasty, bilateral grade 1 ptosis; left breast slightly larger that the right breast Palpation: Right breast: Multi-positional exam no dominant masses or nodules of concern Right axilla: No adenopathy of concern Left breast: Multi-positional exam no dominant masses or nodules of concern Left axilla: No adenopathy of concern Assessment and Plan Assessment: Impression: diabetes depression ADHD right breast fibroadenoma 2 symptomatic macromastia/is post bilateral reduction mammoplasty Left breast suspicious mammogram in the past 3-D stereo biopsy left breast benign concordant done on Mammogram 11-16-2023 BI-RADS 2 Plan: Bilateral mammogram, in one year with follow up will do bilateral ultrasound of the breast to follow fibroadenomas and ? lesion seen in the past onin the left breast then follow up after ultrasound Patient did have ultrasound-guided 2 site biopsy of the right breast which was benign and an attempt at left breast ultrasound which was unable to be done on CC: DR. Hodge
[2023-11-30 12:34] VITALS: BP 136/88; PULSE 120; RESP 16; TEMP 98.6
== END ==
LOC: WWCWWP 11:31
PROVIDERS: ATTEND Surgery
DX: N62 Hypertrophy of breast (principal); E10.9 Type 1 diabetes mellitus without complications; F90.9 Attention-deficit hyperactivity disorder, unspecified type; D24.1 Benign neoplasm of right breast; F32.A Depression, unspecified; F12.90 Cannabis use, unspecified, uncomplicated

== ENCOUNTER 2024-09-08 13:39 | Emergency (ER) | payer BC, OTHER ==
--- NOTE | 2024-09-08 14:57 | ED ---
General Adult HPI - General Chief complaint: Chest Pain Stated complaint: chest pain Time Seen by Provider: 09/08/24 14:12 Source: patient Mode of arrival: ambulatory Limitations: no limitations - History of Present Illness Initial comments: Patient is a 34 y/o female presenting today for shortness of breath and chest pressure. Patient states that symptoms began about 9 days ago and she was seen at [facility] emergency department, testing was done and she was told that it was all normal w/ exception of slight elevation in WBC count and she was discharged home with doxycycline. Was told she could potentially had an early infection. Patient states that since then her chest pain is slightly improved however she continues to have shortness of breath w/ ambulation. Early this morning she has an episode of nausea and NBNB emesis and last night had an episode of diarrhea, which ultimately prompted her to return to ED. She denies history of prior PE/DVT, recent travel surgery or hospitalizations. She is on oral contraceptives. She has had no lower extremity swelling. Denies any recent fevers or chills. Did state that prior to this she did have some upper respiratory symptoms. Is currently a non-smoker, no history of cancer, no history ACS. No family history of first-degree relatives with ACS or CVA for the age of 65. Tylenol at home without relief of pain at rest, currently denies any chest pain. No fevers or chills, endorses nonproductive cough. - Related Data Home Medications Medication Instructions Recorded Confirmed Atomoxetine HCl [Strattera] 60 mg PO DAILY 08/25/22 11/30/23 Insulin Aspart (For Pump) [NovoLOG 0.01 unit SQ-PUMP CONTINUOUS 08/25/22 11/30/23 (For Pump)] Lurasidone [Latuda] 20 mg PO DAILY 09/06/23 11/30/23 Previous Rx's Medication Instructions Recorded Albuterol Inhaler [Ventolin Hfa 1 - 2 puff INHALATION Q6HR PRN 7 09/08/24 Inhaler] Days #2 each Azithromycin [Zithromax Z Pack] 1 tab PO DIRECTED #6 tab 09/08/24 predniSONE [Deltasone] 20 mg PO BID 4 Days #8 tab 09/08/24 Allergies Allergy/AdvReac Type Severity Reaction Status Date / Time Iodinated Contrast Media Allergy Nausea & Verified 11/30/23 11:45 Vomiting iodine Allergy Nausea & Verified 11/30/23 11:45 Vomiting Review of Systems ROS Statement: Those systems with pertinent positive or pertinent negative responses have been documented in the HPI. ROS Other: All systems not noted in ROS Statement are negative. Past Medical History Past Medical History: Diabetes Mellitus Additional Past Medical History / Comment(s): miscarriage x 2. Type 1DM History of Any Multi-Drug Resistant Organisms: None Reported Past Surgical History: Breast Surgery Past Anesthesia/Blood Transfusion Reactions: No Reported Reaction Past Psychological History: ADD/ADHD, Depression Smoking Status: Former smoker Past Alcohol Use History: Occasional Past Drug Use History: Marijuana General Exam - General Exam Comments Initial Comments: PE: CONSTITUTIONAL: No apparent distress, well appearing SKIN: Warm, dry, no jaundice, hives or petechiae EYES: Pupils are equally round, extraocular movements intact without nystagmus, clear conjunctiva, non-icteric sclera HENT: Normocephalic, atraumatic, moist mucus membranes, oropharynx clear without exudates NECK: , Full range of motion, normal appearance PULMONARY: Clear to auscultation without wheezes, rhonchi, or rales, normal excursion, no accessory muscle use and no stridor CARDIOVASCULAR: Regular rate, rhythm, normal S1 and S2. No appreciated murmurs, rubs or gallops. Strong radial pulses with intact distal perfusion. No lower extremity edema GASTROINTESTINAL: Soft, active bowel sounds throughout, non-tender, non- distended, no palpable masses, no rebound or guarding. No hepatosplenomegaly GENITOURINARY: MUSCULOSKELETAL: Extremities have no gross deformity, no edema, redness, or swelling. No calf swelling NEUROLOGIC:_a/o x 3, GCS 15, normal mentation and speech. Moves all extremities x 4 without motor or sensory deficit PSYCHIATRIC:_normal mood and affect, thought process is clear and linear Limitations: no limitations Course Vital Signs 09/08/24 09/08/24 09/08/24 14:02 16:40 16:47 Temperature 98.2 F 98.3 F Pulse Rate 100 75 Pulse Rate [ 75 Transport Coordinator ] Respiratory 18 16 Rate Blood Pressure 122/70 113/74 O2 Sat by Pulse 100 100 Oximetry 09/08/24 09/08/24 18:08 20:28 Temperature 98.0 F Pulse Rate 86 97 Pulse Rate [ Transport Coordinator ] Respiratory 16 18 Rate Blood Pressure 132/75 121/66 O2 Sat by Pulse 99 97 Oximetry EKG Findings - EKG Comments: EKG Findings:: Sinus rhythm, rate 81 beats minute, RI interval 142 ms, QT/QTc 371/408 ms, normal axis, no ST elevations or depressions, no arrhythmia Medical Decision Making - Medical Decision Making Was pt. sent in by a medical professional or institution (, BRIAN, ELECTROTYPER HELPER, urgent care, hospital, or group home...) When possible be specific @ -No Did you speak to anyone other than the patient for history (EMS, parent, family, police, friend...)? What history was obtained from this source @ -No Did you review nursing and triage notes (agree or disagree)? Why? @ -I reviewed and agree with nursing and triage notes Were old charts reviewed (outside hosp., previous admission, EMS record, old EKG, old radiological studies, urgent care reports/EKG's, group home records)? Report findings @ -Medical records reviewed Differential Diagnosis (chest pain, altered mental status, abdominal pain women, abdominal pain men, vaginal bleeding, weakness, fever, dyspnea, syncope, headache, dizziness, GI bleed, back pain, seizure, CVA, palpatations, mental health, musculoskeletal)? Differential Dyspnea: Coronary syndrome, arrhythmia, tamponade, asthma, COPD, pulmonary embolism, pneumonia, pneumothorax, pulmonary effusion, anaphylaxis, diabetic ketoacidosis, flailed chest, pulmonary contusion, diaphragmatic rupture, anemia, neuromuscular, this is not meant to be an all-inclusive list. EKG interpreted by me (3pts min.). @ -As above X-rays interpreted by me (1pt min.). @ -None done CT interpreted by me (1pt min.). I see no evidence of pulmonary embolism or pneumothorax, does appear to have bilateral patchy lower lobe infiltrates U/S interpreted by me (1pt. min.). @ -None done What testing was considered but not performed or refused? (CT, X-rays, U/S, labs)? Why? @ -None What meds were considered but not given or refused? Why? @ -None Did you discuss the management of the patient with other professionals (professionals i.e. , BRIAN, ELECTROTYPER HELPER, lab, RT, psych nurse, sexual assault social worker, field cane scaler, teacher, nuclear medicine officer, transplant case manager)? Give summary @ -No Was smoking cessation discussed for >3mins.? @ -No Was critical care preformed (if so, how long)? @ -No Were there social determinants of health that impacted care today? How? (Homelessness, low income, unemployed, alcoholism, drug addiction, transportation, low edu. Level, literacy, decrease access to med. care, retirement, rehab)? @ -No Was there de-escalation of care discussed even if they declined (Discuss DNR or withdrawal of care, Hospice)? @ -No What co-morbidities impacted this encounter? (DM, HTN, Smoking, COPD, CAD, Cancer, CVA, ARF, Chemo, Hep., AIDS, mental health diagnosis, sleep apnea, morbid obesity)? @ -None Was patient admitted / discharged? Hospital course, mention meds given and route, prescriptions, significant lab abnormalities, going to OR and other pertinent info. @Discharge -this is a pleasant 34-year-old female with no significant medical history presenting with exertional shortness of breath and intermittent chest pressure x 9 days. Previous workup without CT scan at outsdie facility showed only mild leukocytosis per patient. Physical exam overall reassuring, EKG without significant abnormalities. Plan for D-dimer, troponin, basic labs, chest imaging will be obtained based on D-dimer. Additionally will give Toradol and muscle relaxant I have a low suspicion for ACS given chronicity of symptoms, lack or risk factors and URI symptoms proceeding today's symptoms so will hold off on aspirin administration at this time. Heart rate mildly tachycardic, 100 on arrival, otherwise VS within acceptable limits. No hypoxia. D-dimer was elevated so CT PE study was obtained. BNP minimally elevated 45, troponin within normal limits 0.029, Chest CTA was notable for "borderline and suboptimal contrast bolus along with breathing motion limiting evaluation but no definite pulmonary embolism", prominent bronchial wall thickening and scattered peripheral interstitial changes as well, correlate for bronchitis atypical pneumonias or early fluid overload/pulmonary vascular congestion, prominent hilar bronchial lymph nodes probably reactive. Repeat troponin without significant elevation at 0.030, and still within normal limits. HEART score 1. Patient was trialed with an albuterol inhaler out of concern for acute bronchitis vs atypical pneumonia, though notably did not have wheezes on exam. Patient endorsed improvement of symptoms after inhaler administration. Discussed with patient significant findings today and suspicion for atypical pneumonia vs acute bronchitis. We discussed plan for discharge with azithromycin, albuterol inhaler and steroid course. I discussed with her that her symptoms have not improved at the completion of these medications or continue to worsen she should return to the ER immediately, otherwise plan for discharge home. Discussed with the patient the importance of close follow-up with her primary care provider as well as additional return precautions for the ER. Patient agreeable with plan of care and plan for discharge. In my medical judgment there is currently no evidence of an immediate life- threatening or surgical condition. Discharge is therefore indicated at this time. Discharge treatment instructions, follow up instructions, and appropriate emergency department return precautions were discussed with the patient and/or medical decision maker. Patient and/or medical decision maker expressed un derstanding of and agreed with the treatment plan, follow up instructions, and emergency department return precaution. All patient's and/or medical decision maker's questions were answered. Undiagnosed new problem with uncertain prognosis? @ -No Drug Therapy requiring intensive monitoring for toxicity (Heparin, Nitro, Insulin, Cardizem)? @ -No Were any procedures done? @ -No Diagnosis/symptom? @Atypical pneumonia Acute, or Chronic, or Acute on Chronic? @Acute Uncomplicated (without systemic symptoms) or Complicated (systemic symptoms)? complicated Side effects of treatment? @ -No Exacerbation, Progression, or Severe Exacerbation? @ -No Poses a threat to life or bodily function? How? (Chest pain, USA, MD, pneumonia, PE, COPD, DKA, ARF, appy, cholecystitis, CVA, Diverticulitis, Homicidal, Suicidal, threat to staff... and all critical care pts) @ -unlikely, not at time of discharge - Lab Data Result diagrams: 09/08/24 15:02 09/08/24 15:02 Lab Results 09/08/24 09/08/24 09/08/24 Range/Units 15:02 15:02 15:02 WBC 8.7 (3.8-10.6) k/uL RBC 4.46 (3.80-5.40) m/uL Hgb 13.1 (11.4-16.0) gm/dL Hct 38.7 (34.0-46.0) % MCV 86.8 (80.0-100.0) fL MCH 29.3 (25.0-35.0) pg MCHC 33.8 (31.0-37.0) g/dL RDW 13.4 (11.5-15.5) % Plt Count 255 (150-450) k/uL MPV 9.1 Neutrophils % 73 % Lymphocytes % 15 % Monocytes % 5 % Eosinophils % 4 % Basophils % 1 % Neutrophils # 6.4 (1.3-7.7) k/uL Lymphocytes # 1.3 (1.0-4.8) k/uL Monocytes # 0.4 (0-1.0) k/uL Eosinophils # 0.3 (0-0.7) k/uL Basophils # 0.1 (0-0.2) k/uL PT 9.8 L (10.0-12.5) sec INR 0.9 (<1.2) APTT 22.9 (22.0-30.0) sec D-Dimer 0.66 H (<0.60) mg/L FEU Sodium 134 L (137-145) mmol/L Potassium 4.2 (3.5-5.1) mmol/L Chloride 104 (98-107) mmol/L Carbon Dioxide 24 (22-30) mmol/L Anion Gap 6 mmol/L BUN 8 (7-17) mg/dL Creatinine 0.54 (0.52-1.04) mg/dL Est GFR (CKD-EPI)AfAm >90 (>60 ml/min/1.73 sqM) Est GFR (CKD-EPI)NonAf >90 (>60 ml/min/1.73 sqM) Glucose 165 H (74-99) mg/dL Calcium 9.5 (8.4-10.2) mg/dL Magnesium 1.9 (1.6-2.3) mg/dL Total Bilirubin 0.4 (0.2-1.3) mg/dL AST 19 (14-36) U/L ALT 18 (4-34) U/L Alkaline Phosphatase 85 (38-126) U/L Troponin I (0.000-0.034) ng/mL NT-Pro-B Natriuret Pep 485 pg/mL Total Protein 7.2 (6.3-8.2) g/dL Albumin 4.0 (3.5-5.0) g/dL HCG, Qual Not Detected Influenza Type A (PCR) (Not Detectd) Influenza Type B (PCR) (Not Detectd) RSV (PCR) (Not Detectd) SARS-CoV-2 (PCR) (Not Detectd) 09/08/24 09/08/24 09/08/24 Range/Units 15:02 15:14 19:01 WBC (3.8-10.6) k/uL RBC (3.80-5.40) m/uL Hgb (11.4-16.0) gm/dL Hct (34.0-46.0) % MCV (80.0-100.0) fL MCH (25.0-35.0) pg MCHC (31.0-37.0) g/dL RDW (11.5-15.5) % Plt Count (150-450) k/uL MPV Neutrophils % % Lymphocytes % % Monocytes % % Eosinophils % % Basophils % % Neutrophils # (1.3-7.7) k/uL Lymphocytes # (1.0-4.8) k/uL Monocytes # (0-1.0) k/uL Eosinophils # (0-0.7) k/uL Basophils # (0-0.2) k/uL PT (10.0-12.5) sec INR (<1.2) APTT (22.0-30.0) sec D-Dimer (<0.60) mg/L FEU Sodium (137-145) mmol/L Potassium (3.5-5.1) mmol/L Chloride (98-107) mmol/L Carbon Dioxide (22-30) mmol/L Anion Gap mmol/L BUN (7-17) mg/dL Creatinine (0.52-1.04) mg/dL Est GFR (CKD-EPI)AfAm (>60 ml/min/1.73 sqM) Est GFR (CKD-EPI)NonAf (>60 ml/min/1.73 sqM) Glucose (74-99) mg/dL Calcium (8.4-10.2) mg/dL Magnesium (1.6-2.3) mg/dL Total Bilirubin (0.2-1.3) mg/dL AST (14-36) U/L ALT (4-34) U/L Alkaline Phosphatase (38-126) U/L Troponin I 0.029 0.030 (0.000-0.034) ng/mL NT-Pro-B Natriuret Pep pg/mL Total Protein (6.3-8.2) g/dL Albumin (3.5-5.0) g/dL HCG, Qual Influenza Type A (PCR) Not Detected (Not Detectd) Influenza Type B (PCR) Not Detected (Not Detectd) RSV (PCR) Not Detected (Not Detectd) SARS-CoV-2 (PCR) Not Detected (Not Detectd) Disposition Clinical Impression: Atypical pneumonia Disposition: HOME SELF-CARE Condition: Good Instructions (If sedation given, give patient instructions): Community Acquired Pneumonia (ED) Additional Instructions: Every disease is a spectrum and a small chance still exists that a serious condition could develop, for this reason, please monitor yourself closely for new, changing or worsening symptoms, symptoms that persist beyond completion of antibiotics/steroids, should you use a home pulse oximeter and your pulse ox be less than 90%, failure of your symptoms to improve after steroids and antibiotics, coughing up blood or thick sputum, swelling in your legs, fever, inability to tolerate/keep down fluids or your medications, inability to follow up with outpatient providers as instructed and should you experience these symptoms or should you have any further concerns for your wellbeing please return to the ED or call 911 immediately. PLEASE call your primary care physician as soon as possible to arrange / discuss plan for followup appointment. Appointment in the next 1-3 days is strongly encouraged if possible. PLEASE let us know here before you leave if there is anything further we can do to be of any assistance. Take care and feel Better! Prescriptions: predniSONE [Deltasone] 20 mg PO BID 4 Days #8 tab Albuterol Inhaler [Ventolin Hfa Inhaler] 1 - 2 puff INHALATION Q6HR PRN 7 Days #2 each PRN Reason: Difficulty breathing Azithromycin [Zithromax Z Pack] 1 tab PO DIRECTED #6 tab Is patient prescribed a controlled substance at d/c from ED?: No Referrals: Brenda Hodge MD [Primary Care Provider] - 1-2 days
[2024-09-08] MEDS: ORPHENADRINE 30 MG/ML 2 ML VIAL IVP STA (15:06)
[2024-09-08] MEDS: KETOROLAC 15 MG/ML 1 ML VIAL IVP STA (15:06)
[2024-09-08] MEDS: SODIUM CHLORIDE 0.9% 1,000 ML IV STA (15:06)
[2024-09-08 15:32] LABS: ALT 18 U/L (4-34); AST 19 U/L (14-36); African American GFR (CKD) >90 (>60 ml/min/1.73 sqM); Alkaline Phosphatase 85 U/L (38-126); Anion Gap 6 mmol/L; Blood Urea Nitrogen 8 mg/dL (7-17); Calcium 9.5 mg/dL (8.4-10.2); Carbon Dioxide 24 mmol/L (22-30); Chloride 104 mmol/L (98-107); Glucose 165 mg/dL (74-99); Magnesium 1.9 mg/dL (1.6-2.3); Non-African American GFR(CKD) >90 (>60 ml/min/1.73 sqM); Potassium 4.2 mmol/L (3.5-5.1); Sodium 134 mmol/L (137-145); Total Bilirubin 0.4 mg/dL (0.2-1.3); Total Protein 7.2 g/dL (6.3-8.2)
[2024-09-08 15:34] LABS: Basophils # (A) 0.1 k/uL (0-0.2); Basophils % (A) 1 %; Eosinophils # (A) 0.3 k/uL (0-0.7); Eosinophils % (A) 4 %; HCT 38.7 % (34.0-46.0); HGB 13.1 gm/dL (11.4-16.0); Lymphocytes # (A) 1.3 k/uL (1.0-4.8); Lymphocytes % (A) 15 %; MCH 29.3 pg (25.0-35.0); MCHC 33.8 g/dL (31.0-37.0); MCV 86.8 fL (80.0-100.0); Mean Platelet Volume 9.1; Monocytes # (A) 0.4 k/uL (0-1.0); Monocytes % (A) 5 %; Neutrophils # (A) 6.4 k/uL (1.3-7.7); Neutrophils % (A) 73 %; Platelet Count 255 k/uL (150-450); RBC 4.46 m/uL (3.80-5.40); RDW 13.4 % (11.5-15.5); WBC 8.7 k/uL (3.8-10.6)
[2024-09-08 15:40] LABS: INR 0.9 (<1.2); NT-Pro-B-Type Natriuretic Pept 485 pg/mL; Partial Thromboplastin Time 22.9 sec (22.0-30.0); Prothrombin Time 9.8 sec (10.0-12.5)
[2024-09-08 16:06] LABS: HCG,Qualitative Serum Not Detected
[2024-09-08] MEDS: ONDANSETRON 4 MG/2 ML VIAL IVP STA (16:39)
[2024-09-08] MEDS: methylPREDNISolone SOD SUCCI 125 MG/2 ML VIAL IV STA (16:44)
[2024-09-08] MEDS: diphenhydrAMINE 50 MG/ML 1 ML VIAL IVP STA (16:45)
--- NOTE | 2024-09-08 17:54 | CT ---
EXAMINATION TYPE: CT chest angio for PE DATE OF EXAM: 09/08/2024 5:45 PM COMPARISON: Radiograph 12/16/2022 CLINICAL INDICATION: Female, 34 years old with history of chest pressure, shortness of breath, dimer, chest pressure, shortness of breath, dimer., TECHNIQUE: Contiguous axial scanning of the chest performed with IV Contrast, patient injected with 1 00 ml mL of Isovue 370. Coronal and sagittal MIP reconstructions performed. CT DLP: 350.8 mGycm, Automated exposure control for dose reduction was used. FINDINGS: The heart is upper limits of normal in size without pericardial effusion. No refluxing contrast into the hepatic veins. Aorta normal caliber with conventional arch vessel branching anatomy. A few scattered prominent paratracheal lymph nodes measuring up to 9 mm. Some bilateral hilar/bronchi al lymph nodes measuring up to 1.2 cm. There is borderline suboptimal opacification of the pulmonary arterial system. Further limitation due to breathing motion artifact. No definite pulmonary embolus is seen allowing for these limitations. Lungs show moderate diffuse bronchial wall thickening and scattered reticular/interstitial changes es pecially in the lower lungs. No pleural effusion. No kandi consolidation or pleural effusion. Visualized upper abdomen shows a couple small gallstones measuring up to 5 mm and a hilar splenule. No osseous destructive process. IMPRESSION: 1. BORDERLINE SUBOPTIMAL CONTRAST BOLUS ALONG WITH BREATHING MOTION LIMITING THE EVALUATION. NO DEFIN ITE PULMONARY EMBOLUS ALIGNMENT FOR THESE LIMITATIONS. 2. PROMINENT BRONCHIAL WALL THICKENING AND SCATTERED PERIPHERAL INTERSTITIAL CHANGES WELL. CORRELA TE FOR BRONCHITIS, ATYPICAL PNEUMONIAS, OR EARLY FLUID OVERLOAD/PULMONARY VASCULAR CONGESTION. 3. SOME PROMINENT HILAR/BRONCHIAL LYMPH NODES ARE PROBABLY REACTIVE. 4. CHOLELITHIASIS. [facility], , 09/08/2024 5:52 PM
[2024-09-08 18:08] VITALS: TEMP 98
[2024-09-08] MEDS: ALBUTEROL HFA INHALER INHALATION STA (18:42)
[2024-09-08 20:28] VITALS: BP 121/66; PULSE 97; RESP 18
== END 2024-09-08 20:39 | disposition home or self-care (01) ==
LOC: EC 13:39
DX: J18.9 Pneumonia, unspecified organism (principal); Z87.891 Personal history of nicotine dependence; Z88.8 Allergy status to other drugs, medicaments and biological substances; Z91.041 Radiographic dye allergy status
CPT/HCPCS: 99285; 96374; 96375; 96361; 36415; 94640; 93005; 85379; 83880; 80053; 83735; 84484; 85025; 85610; 85730; 84703; 87636; 71275; J1200; J2360; J2405; J1885; Q9967; J2919